=== PATIENT | male | born 1990 | race Caucasian/White ===

== ENCOUNTER 2023-06-04 23:15 | Emergency (ER) | payer SELFPAY ==
[~2023-06-04] VITALS: Ht 162.6 cm; Wt 99.8 kg
[2023-06-04 23:23] VITALS: BP_SYST 138; PULSE 89; RESP 20; TEMP 98.1
[2023-06-05] MEDS: DIPHTH,PERTUSS(ACELL),TET VAC 0.5 ML VIAL (Tdap) I.M. ONE (00:29)
[2023-06-05 00:48] VITALS: BP_SYST 122; PULSE 112; RESP 18; TEMP 98.9; O2SAT 98
== END 2023-06-05 00:48 ==
LOC: SED 23:15
DX: S40.011A Contusion of right shoulder, initial encounter (principal); Y04.0XXA Assault by unarmed brawl or fight, initial encounter; Y93.89 Activity, other specified; Y92.89 Other specified places as the place of occurrence of the external cause; Y99.8 Other external cause status
CPT/HCPCS: 73030; 90715; 99283